=== PATIENT | male | born 1985 | race Caucasian/White ===

== ENCOUNTER 2020-12-29 07:58 | Emergency (ER) | payer MEDICAID ==
[~2020-12-29] VITALS: Ht 170.2 cm; Wt 69.9 kg
[2020-12-29 08:08] VITALS: BP 125/71
--- NOTE | 2020-12-29 08:35 | NUR ---
CURRICULUM DEVELOPMENT COORDINATOR AT BEDSIDE FOR US.
[2020-12-29] MEDS ORDERED: NAPR-1164 PO (09:20)
--- NOTE | 2020-12-29 09:25 | NUR ---
Patient discharged to home in stable condition. Written and verbal after care instructions given. Patient verbalizes understanding of instruction.
== END 2020-12-29 09:26 | disposition home or self-care (01) ==
LOC: ER 08:08
DX: S86.812A Strain of other muscle(s) and tendon(s) at lower leg level, left leg, initial encounter (principal); X58.XXXA Exposure to other specified factors, initial encounter; Y93.89 Activity, other specified; Y92.89 Other specified places as the place of occurrence of the external cause; Y99.8 Other external cause status
CPT/HCPCS: 93971-TC